=== PATIENT | female | born 1975 | race Caucasian/White ===

== ENCOUNTER 2020-03-30 08:35 | Emergency (ER) | payer OTHER ==
[~2020-03-30] VITALS: Ht 175.3 cm; Wt 54.4 kg
[~2020-03-30 08:35] MED LIST: BACTRIM DS TAB1 EACH PO; CLONAZEPAM 1 MG1 M1 PO; FLEXERIL PO; KEFLEX500 MG PO; LISINOPRIL10 MG PO; LORATIDINE 10 M10 M1 PO; NAPROSYN500 MG PO; NORCO 5-325 TA1 EACH PO; PRINIVIL20 MG PO; PROPRANOLOL 8080 MG PO; TENORMIN50 MG PO
[2020-03-30 12:57] VITALS: BP 123/77
== END 2020-03-30 12:57 | disposition home or self-care (01) ==
LOC: ER 08:35
DX: H51.8 Other specified disorders of binocular movement (principal); H53.453 Other localized visual field defect, bilateral; I10 Essential (primary) hypertension; F17.210 Nicotine dependence, cigarettes, uncomplicated; Z79.899 Other long term (current) drug therapy